=== PATIENT | male | born 1960 | race African-American/Black ===

== ENCOUNTER 2017-09-24 14:10 | Emergency (ER) | payer OTHER, MEDICARE ==
[2017-09-24 15:36] LABS: Hematocrit 26.2 % (39.6-49.0); MCH 27.3 pg (27.0-35.0); MCV 83.1 fL (80-100); MPV 10.2 fL (7.6-11.3); RBC Red Blood Cell Count 3.15 M/uL (4.33-5.43)
[2017-09-24 16:17] LABS: Potassium 3.1 mmol/L (3.5-5.1)
--- NOTE | 2017-09-24 16:31 | EDPHYS ---
Physician Documentation [facility] Name: Arnol Olmos Age: 57 yrs Sex: Male : 1960 Arrival Date: 09/24/2017 Time: 14:11 Bed 26 Private MD: ED Physician Max Bowser HPI: 09/24 14:52 This 57 yrs old Black Male presents to ER via EMS with complaints of transient ps1 hypotension. 14:52 patient was at dialysis and had an episode of hypotension. EMS called and patient was ps1 normotensive. Patient remains normotensive. patient additionally had hernia repair yesterday. Patient has no complaints in ED. . Historical: - Allergies: 14:37 No Known Allergies; tl3 - Home Meds: 14:37 calcium acetate 667 mg oral cap 3 times per day [Active]; aspirin 81 mg Oral chew 1 tab tl3 once daily [Active]; carvedilol 25 mg oral tab 1 tab 2 times per day [Active]; Vitamin D3 1,000 unit oral tab daily [Active]; allopurinol 100 mg Oral tab 1 tab once daily [Active]; folic acid 400 mcg Oral tab once daily [Active]; losartan 100 mg oral tab once daily [Active]; doxazosin 4 mg oral tab 1 tab bid [Active]; [place]-3 350 mg-235 mg- 90 mg-597 mg oral cpDR daily [Active]; 14:38 nifedipine 60 mg Oral tr24 1 tab bid [Active]; [place] 5-325 mg Oral tab 2 tabs every 4-6 tl3 hours for Pain [Active]; - PMHx: 14:37 ESRD; Hypertension; Gout; tl3 - PSHx: 14:37 Hernia repair; tl3 - Immunization history:: Adult Immunizations up to date. - Social history:: Smoking status: unknown. - Ebola Screening: : No symptoms or risks identified at this time. ROS: 14:52 Constitutional: Negative for fever, chills, and weight loss, Eyes: Negative for injury, ps1 pain, redness, and discharge, Cardiovascular: Negative for chest pain, palpitations, and edema, Respiratory: Negative for shortness of breath, cough, wheezing, and pleuritic chest pain, Abdomen/GI: Negative for abdominal pain, nausea, vomiting, diarrhea, and constipation, MS/Extremity: Negative for injury and deformity, Neuro: Negative for headache, weakness, numbness, tingling, and seizure. Exam: 14:52 Constitutional: This is a well developed, well nourished patient who is awake, alert, ps1 and in no acute distress. Head/Face: Normocephalic, atraumatic. Eyes: Pupils equal round and reactive to light, extra-ocular motions intact. Lids and lashes normal. Conjunctiva and sclera are non-icteric and not injected. Chest/axilla: Normal chest wall appearance and motion. Nontender with no deformity. No lesions are appreciated. Cardiovascular: Regular rate and rhythm. No gallops, murmurs, or rubs. Normal PMI, no JVD. No pulse deficits. Respiratory: Lungs have equal breath sounds bilaterally, clear to auscultation and percussion. No rales, rhonchi or wheezes noted. No increased work of breathing, no retractions or nasal flaring. Abdomen/GI: Soft, non-tender, with normal bowel sounds. No distension or tympany. No guarding or rebound. No evidence of tenderness throughout. 14:52 Skin: wound on abdomen appears CDI. . Vital Signs: 14:00 BP 136 / 81; Pulse 87; Resp 18; Temp 98.7(O); Pulse Ox 94% on R/A; tl3 14:41 BP 120 / 77; Pulse 86; Resp 18; Pulse Ox 94% ; tl3 15:23 BP 136 / 80; Pulse 86; Resp 18; Pulse Ox 95% on R/A; tl3 16:42 BP 138 / 78; Pulse 87; Resp 18; Pulse Ox 95% on R/A; tl3 MDM: 15:05 Patient medically screened. ps1 16:31 Data reviewed: vital signs, nurses notes, lab test result(s). Counseling: I had a ps1 detailed discussion with the patient and/or guardian regarding: the historical points, exam findings, and any diagnostic results supporting the discharge/admit diagnosis, lab results, to return to the emergency department if symptoms worsen or persist or if there are any questions or concerns that arise at home. 09/24 15:01 Order name: CBC w/o diff; Complete Time: 15:38 ps1 09/24 15:01 Order name: BMP; Complete Time: 16:29 ps1 Administered Medications: No medications were administered Disposition: 08/10/18 16:30 Discharged to Home. Impression: transient hypotension, post op wound check. - Condition is Stable. - Discharge Instructions: Wound Check, Hypotension, [id number]. - Medication Reconciliation Form, Thank You Letter, Antibiotic Education, Prescription Opioid Use form. - Follow up: Private Physician; When: As needed; Reason: Recheck today's complaints, Continuance of care, Re-evaluation by your physician. Follow up: Emergency Department; When: As needed; Reason: Fever > 102 F, Trouble breathing, Worsening of condition. - Problem is new. - Symptoms are resolved. Signatures: Dispatcher [employer] EDMS Max Boswer MD MD ps1 Jessica Shepherd RN RN tl3 Corrections: (The following items were deleted from the chart) 16:43 16:30 09/24/2017 16:30 Discharged to Home. Impression: transient hypotension; post op tl3 wound check. Condition is Stable. Forms are Medication Reconciliation Form, Thank You Letter, Antibiotic Education, Prescription Opioid Use. Follow up: Private Physician; When: As needed; Reason: Recheck today's complaints, Continuance of care, Re-evaluation by your physician. Follow up: Emergency Department; When: As needed; Reason: Fever > 102 F, Trouble breathing, Worsening of condition. Problem is new. Symptoms are resolved. ps1
--- NOTE | 2017-09-24 16:31 | ER ---
Nurse's Notes [facility] Name: Arnol Olmos Age: 57 yrs Sex: Male : 1960 Arrival Date: 09/24/2017 Time: 14:11 Bed 26 Private MD: Diagnosis: transient hypotension;post op wound check Presentation: 09/24 14:25 Presenting complaint: EMS states: pt was at dialysis and had two episodes of low BP, tl3 one 85/55, 73/43 however arterial pressure remained at 160 during episode, pt AAOX3 in no distress, EMS BP 124/70, BG 93. Transition of care: patient was received from another setting of care (ambulatory specialty care practice), Dialysis. Onset of symptoms was September 24, 2017. Risk Assessment: Do you want to hurt yourself or someone else? Patient reports no desire to harm self or others. Initial Sepsis Screen: Does the patient meet any 2 criteria? No. Patient's initial sepsis screen is negative. Does the patient have a suspected source of infection? No. Patient's initial sepsis screen is negative. Care prior to arrival: Medication(s) given: Normal saline infusion, 500 mL. 14:25 Method Of Arrival: EMS: [facility] tl3 14:25 Acuity: GENOVEVA 3 tl3 Triage Assessment: 14:38 General: Appears in no apparent distress. comfortable, well groomed, well developed, tl3 well nourished, Behavior is calm, cooperative, appropriate for age. Pain: Denies pain. EENT: No deficits noted. Neuro: Level of Consciousness is awake, alert, obeys commands, Oriented to person, place, time, situation, Appropriate for age. Cardiovascular: Patient's skin is warm and dry. Respiratory: Airway is patent Respiratory effort is even, unlabored, Respiratory pattern is regular, symmetrical. GI: No signs and/or symptoms were reported involving the gastrointestinal system. GI: Abdomen is round Hernia repair surgery yesterday, umbilical area swollen and bruised, warm and tender to the touch. : No signs and/or symptoms were reported regarding the genitourinary system. Derm: No signs and/or symptoms reported regarding the dermatologic system. Musculoskeletal: No signs and/or symptoms reported regarding the musculoskeletal system. Historical: - Allergies: 14:37 No Known Allergies; tl3 - Home Meds: 14:37 calcium acetate 667 mg oral cap 3 times per day [Active]; aspirin 81 mg Oral chew 1 tab tl3 once daily [Active]; carvedilol 25 mg oral tab 1 tab 2 times per day [Active]; Vitamin D3 1,000 unit oral tab daily [Active]; allopurinol 100 mg Oral tab 1 tab once daily [Active]; folic acid 400 mcg Oral tab once daily [Active]; losartan 100 mg oral tab once daily [Active]; doxazosin 4 mg oral tab 1 tab bid [Active]; [place]-3 350 mg-235 mg- 90 mg-597 mg oral cpDR daily [Active]; 14:38 nifedipine 60 mg Oral tr24 1 tab bid [Active]; [place] 5-325 mg Oral tab 2 tabs every 4-6 tl3 hours for Pain [Active]; - PMHx: 14:37 ESRD; Hypertension; Gout; tl3 - PSHx: 14:37 Hernia repair; tl3 - Immunization history:: Adult Immunizations up to date. - Social history:: Smoking status: unknown. - Ebola Screening: : No symptoms or risks identified at this time. Screenin:23 Abuse screen: Denies threats or abuse. Nutritional screening: No deficits noted. tl3 Tuberculosis screening: No symptoms or risk factors identified. Fall Risk None identified. Assessment: 14:41 Reassessment: No changes from previously documented assessment. Patient and/or family tl3 updated on plan of care and expected duration. Pain level reassessed. Patient is alert, oriented x 3, equal unlabored respirations, skin warm/dry/pink. General:. 15:23 Reassessment: Patient appears in no apparent distress at this time. No changes from tl3 previously documented assessment. Patient and/or family updated on plan of care and expected duration. Pain level reassessed. Patient is alert, oriented x 3, equal unlabored respirations, skin warm/dry/pink. 16:42 Reassessment: Patient appears in no apparent distress at this time. No changes from tl3 previously documented assessment. Patient and/or family updated on plan of care and expected duration. Pain level reassessed. Patient is alert, oriented x 3, equal unlabored respirations, skin warm/dry/pink. Vital Signs: 14:00 BP 136 / 81; Pulse 87; Resp 18; Temp 98.7(O); Pulse Ox 94% on R/A; tl3 14:41 BP 120 / 77; Pulse 86; Resp 18; Pulse Ox 94% ; tl3 15:23 BP 136 / 80; Pulse 86; Resp 18; Pulse Ox 95% on R/A; tl3 16:42 BP 138 / 78; Pulse 87; Resp 18; Pulse Ox 95% on R/A; tl3 ED Course: 14:00 Patient has correct armband on for positive identification. Placed in gown. Bed in low jp3 position. Call light in reach. Side rails up X 1. Side rails up X2. Warm blanket given. Pillow given. front desk monitor on. Pulse ox on. NIBP on. 14:11 Patient arrived in ED. 14:23 Jessica Shepherd, RN is Primary Nurse. tl3 14:28 Triage completed. tl3 14:38 Arm band placed on right wrist. tl3 14:43 Max Bowser MD is Attending Physician. ps1 15:23 No provider procedures requiring assistance completed. Patient did not have IV access tl3 during this emergency room visit. Administered Medications: No medications were administered Outcome: 16:30 Discharge ordered by . ps1 16:42 Discharged to home via wheelchair. tl3 16:42 Condition: stable 16:42 Discharge instructions given to patient, family, Instructed on discharge instructions, follow up and referral plans. Demonstrated understanding of instructions, follow-up care. 16:43 Patient left the ED. tl3 Signatures: Tahira Sims RN RN Max Bowser MD [facility] Jessica Shepherd RN RN tl3 Colten John jp3 Corrections: (The following items were deleted from the chart) 14:43 14:38 BP 136 / 81; Pulse 87bpm; Resp 18bpm; Pulse Ox 94% RA; Temp 98.7F Oral; tl3 tl3
[2017-09-24 16:55] VITALS: O2SAT 95
[2017-09-24 16:56] VITALS: BP 138/78
== END 2017-09-24 16:43 | disposition home or self-care (01) ==
LOC: ER 14:10
DX: I95.89 Other hypotension (principal); Z48.00 Encounter for change or removal of nonsurgical wound dressing; I12.0 Hypertensive chronic kidney disease with stage 5 chronic kidney disease or end stage renal disease; N18.6 End stage renal disease; Z99.2 Dependence on renal dialysis; Z79.82 Long term (current) use of aspirin
CPT/HCPCS: 36415; 80048; 85027; 99284

== ENCOUNTER 2020-04-29 11:57 | Emergency (ER) | payer MEDICARE, OTHER ==
--- OUTSIDE RECORDS SUMMARY | 2020-04-29 12:00 | XMS REPORT | Continuity of Care Document ---
:1960 Author Organization [facility] t Address [address] [place] [id number] Care Team Providers Name Role Phone Unavailable Unavailable Unavailable Problems This patient has no known problems. Allergies, Adverse Reactions, Alerts This patient has no known allergies or adverse reactions. Medications This patient has no known medications. Procedures This patient has no known procedures. Encounters Start End Encounter Admission Attending Care Care Encounter Source Date/Time Date/Time Type Type Clinicians Facility Department ID 2019-06-15 2019-06-15 Outpatient U [facility] [id number] [facility] 10:42:00 10:42:00 2018-08-10 2018-08-10 Outpatient E [id number] 19:28:00 19:28:00 Results This patient has no known results.
[2020-04-29] MEDS ORDERED: ACETAMINOPHEN 500 MG TAB ONE (12:45)
[2020-04-29 14:16] LABS: SARS-COV-2 RT PCR POSITIVE (NEGATIVE)
--- NOTE | 2020-04-29 14:36 | EDPHYS ---
Physician Documentation [facility] Name: Arnol Olmos Age: 59 yrs Sex: Male : 1960 Arrival Date: 04/29/2020 Time: 12:00 Bed 30 Private MD: Arlyn Foss H ED Physician Prasanna Hunt HPI: 04/29 14:33 This 59 yrs old Black Male presents to ER via Wheelchair with complaints of Fever. jmm 14:33 The patient reports fever, not measured (subjective). Onset: The symptoms/episode jmm began/occurred today. Modifying factors: there are no obvious modifying factors. Associated signs and symptoms: Pertinent negatives: abdominal pain, cough, shortness of breath. The patient has not experienced similar symptoms in the past. This is a 59 year old male with a history of ESRD, Gout HTN, that presents to the ED with complaints of fever. Temp was taken at dialysis and elevated. Patient tested positive for COVID. Historical: - Allergies: 12:25 No Known Allergies; ca1 - PMHx: 12:25 ESRD; Gout; Hypertension; ca1 - PSHx: 12:25 Hernia repair; ca1 - Immunization history:: Pneumococcal vaccine is up to date, Flu vaccine is up to date. - Social history:: Smoking status: Patient denies any tobacco usage or history of. ROS: 14:33 Respiratory: Negative for shortness of breath, cough, wheezing, and pleuritic chest jmm pain, Abdomen/GI: Negative for abdominal pain, nausea, vomiting, diarrhea, and constipation. 14:33 Constitutional: Positive for fever. 14:33 Respiratory: Negative for cough, shortness of breath. 14:33 Neuro: Negative for altered mental status, weakness. 14:33 All other systems are negative. Exam: 14:33 Constitutional: This is a well developed, well nourished patient who is awake, alert, jmm and in no acute distress. Head/Face: atraumatic. Eyes: EOMI, no conjunctival erythema appreciated ENT: Moist Mucus Membranes Neck: Trachea midline, Supple Chest/axilla: Normal chest wall appearance and motion. Cardiovascular: Regular rate and rhythm. No edema appreciated Respiratory: Normal respirations, no respiratory distress appreciated Abdomen/GI: Non distended, soft Back: Normal ROM Skin: General appearance color normal MS/ Extremity: Moves all extremities, no obvious deformities appreciated, no edema noted to the lower extremities Neuro: Awake and alert, normal gait Psych: Behavior is normal, Mood is normal, Patient is cooperative and pleasant Vital Signs: 12:21 BP 177 / 89; Pulse 80; Resp 16 S; Temp 101.1(O); Pulse Ox 96% on R/A; Weight 108.86 kg ca1 (R); Height 6 ft. 2 in. (187.96 cm) (R); Pain 0/10; 12:21 Body Mass Index 30.81 (108.86 kg, 187.96 cm) ca1 MDM: 14:22 Patient medically screened. [facility] 14:35 Data reviewed: vital signs, nurses notes. Counseling: I had a detailed discussion with lakhwinder the patient and/or guardian regarding: the historical points, exam findings, and any diagnostic results supporting the discharge/admit diagnosis, lab results, the need for outpatient follow up, to return to the emergency department if symptoms worsen or persist or if there are any questions or concerns that arise at home. ED course: Patient is alert and non toxic in appearance in the ED. No signs of resp distress. Advised to follow up with pcp in 1 to 2 days and otherwise given strict return precautions. patient understood and agrees with the plan of care. . 04/29 12:30 Order name: Flu ca1 04/29 12:30 Order name: COVID-19 : Document "Date of Symptom Onset" if Symptomatic. ca1 04/29 14:17 Order name: COVID-19/FLU A+B; Complete Time: 14:28 EDMS Administered Medications: 12:29 Drug: Tylenol 1000 mg Route: PO; ca1 15:00 Drug: Decadron 10 mg Route: IM; Site: right deltoid; iw Disposition: 04/30 09:43 Co-signature as Attending Physician, Prasanna Hunt MD I agree with the assessment and roger plan of care. Disposition: 04/29/20 14:36 Discharged to Home. Impression: Coronavirus infection, unspecified. - Condition is Stable. - Discharge Instructions: COVID-19. - Prescriptions for ivermectin 3 mg Oral tablet - take 6 tablet by ORAL route as directed 6 tabs now and 6 on day 3; 12 tablet. Prednisone 20 mg Oral Tablet - take 3 tablet by ORAL route once daily for 5 days; 15 tablet. Albuterol Sulfate 90 mcg/actuation - inhale 1-2 puff by INHALATION route every 4-6 hours; 1 Inhaler. - Medication Reconciliation Form, Thank You Letter, Antibiotic Education, Prescription Opioid Use form. - Follow up: Arlyn Foss DO; When: Tomorrow; Reason: Recheck today's complaints, Continuance of care, Re-evaluation by your physician. - Notes: Please take 10,000 units of Vitamin D a day Take 1000 mg of NAC twice a Day Take vitamin C Take 50-100 mg of Zinc a day Signatures: Dispatcher [employer] EDMS Prasanna Hunt MD MD cha Mickail, Joel, PA PA Diane Winters RN RN iw Moni Carrion RN RN ca1 Corrections: (The following items were deleted from the chart) 04/29 12:58 12:30 CORONAVIRUS ordered. EDMO EDMS 12:59 12:30 Influenza Screen (A ordered. EDMO EDMS 15:28 14:36 04/29/2020 14:36 Discharged to Home. Impression: Coronavirus infection, iw unspecified. Condition is Stable. Forms are Medication Reconciliation Form, Thank You Letter, Antibiotic Education, Prescription Opioid Use. Follow up: Arlyn Foss; When: Tomorrow; Reason: Recheck today's complaints, Continuance of care, Re-evaluation by your physician. lakhwinder
--- NOTE | 2020-04-29 14:36 | ER ---
Nurse's Notes [facility] Name: Arnol Olmos Age: 59 yrs Sex: Male : 1960 Arrival Date: 04/29/2020 Time: 12:00 Bed 30 Private MD: Arlyn Foss H Diagnosis: Coronavirus infection, unspecified Presentation: 04/29 12:21 Chief complaint: Patient states: About to start dialysis session today, temperature ca1 check was high. Denies cough. Denies abdominal pain. Denies urinary symptoms. Coronavirus screen: Client denies travel out of the [place] in the last 14 days. fever, Client presents with at least one sign or symptom that may indicate coronavirus-19. Standard/surgical mask placed on the client. Provider contacted for isolation considerations. Ebola Screen: Patient negative for fever greater than or equal to 101.5 degrees Fahrenheit, and additional compatible Ebola Virus Disease symptoms Patient denies exposure to infectious person. Patient denies travel to an Ebola-affected area in the 21 days before illness onset. No symptoms or risks identified at this time. Initial Sepsis Screen: Does the patient meet any 2 criteria? No. Patient's initial sepsis screen is negative. Does the patient have a suspected source of infection? No. Patient's initial sepsis screen is negative. Risk Assessment: Do you want to hurt yourself or someone else? Patient reports no desire to harm self or others. Onset of symptoms was April 29, 2020. 12:21 Method Of Arrival: Wheelchair ca1 12:21 Acuity: GENOVEVA 3 ca1 Historical: - Allergies: 12:25 No Known Allergies; ca1 - PMHx: 12:25 ESRD; Gout; Hypertension; ca1 - PSHx: 12:25 Hernia repair; ca1 - Immunization history:: Pneumococcal vaccine is up to date, Flu vaccine is up to date. - Social history:: Smoking status: Patient denies any tobacco usage or history of. Vital Signs: 12:21 BP 177 / 89; Pulse 80; Resp 16 S; Temp 101.1(O); Pulse Ox 96% on R/A; Weight 108.86 kg ca1 (R); Height 6 ft. 2 in. (187.96 cm) (R); Pain 0/10; 12:21 Body Mass Index 30.81 (108.86 kg, 187.96 cm) ca1 ED Course: 12:00 Patient arrived in ED. mr 12:01 Arlyn Foss DO is Private Physician. mr 12:24 Triage completed. ca1 12:25 Arm band placed on right wrist. ca1 14:16 Omar Ivy PA is PHCP. lakhwinder 14:16 Prasanna Hunt MD is Attending Physician. jmm 14:18 Diane Chavez, RN is Primary Nurse. iw 14:35 Arlyn Foss DO is Referral Physician. jmm Administered Medications: 12:29 Drug: Tylenol 1000 mg Route: PO; ca1 15:00 Drug: Decadron 10 mg Route: IM; Site: right deltoid; iw Outcome: 14:36 Discharge ordered by . jmm 15:28 Patient left the ED. iw Signatures: Omar Ivy PA PA lakhwinder Carlita Yap mr Diane Chavez, RN RN iw Moni Carrion RN RN ca1 Corrections: (The following items were deleted from the chart) 12:58 12:35 CORONAVIRUS drawn and sent. ca1 EDMS 12:59 12:35 Influenza Screen (A drawn and sent. ca1 EDMS
[2020-04-29] MEDS ORDERED: dexAMETHasone 10 MG/ML VIAL ONE (15:19)
[2020-04-29 22:36] VITALS: BP 177/89; TEMP 101.1; O2SAT 96
== END 2020-04-29 15:28 | disposition home or self-care (01) ==
LOC: ER 11:57
DX: U07.1 COVID-19 (principal); I12.0 Hypertensive chronic kidney disease with stage 5 chronic kidney disease or end stage renal disease; N18.6 End stage renal disease; M10.9 Gout, unspecified; Z99.2 Dependence on renal dialysis
CPT/HCPCS: 0240U; J1100; 96372; 99282